=== PATIENT | male | born 1965 | race Caucasian/White ===

== ENCOUNTER → 2019-02-03 08:15 | Outpatient (CLI) | payer BC | END | disposition home or self-care (01) | LOC: D.HCCARDIO 08:15 | PROVIDERS: ATTEND Internal Medicine Cardiovascular Disease | DX: I20.9 Angina pectoris, unspecified (principal) ==

== ENCOUNTER → 2019-02-06 12:35 | Outpatient (CLI) | payer BC ==
[~2019-02-06 12:35] MED LIST: ASPIRIN81 MG PO; BUPROPION XL300 MG PO
[2019-02-13 07:50] VITALS: BMI 32.1
== END | disposition home or self-care (01) ==
LOC: D.HCCARDIO 12:35
PROVIDERS: ATTEND Internal Medicine Cardiovascular Disease
DX: I20.9 Angina pectoris, unspecified (principal); R06.02 Shortness of breath; R60.1 Generalized edema

== ENCOUNTER 2019-02-13 07:06 | Outpatient (CLI) | payer BC ==
[~2019-02-13] VITALS: Ht 180.3 cm; Wt 104.5 kg
--- NOTE | ~2019-02-13 | HEMODYNAMI ---
PATIENT:JERSON RAMAN MEDICAL RECORD: [id number] : 61 LOCATION:[facility] ADMISSION DATE: 02/13/19 Generatedon:02/13/201910:00 Patient name: JERSON RAMAN Patient #: [id number] SSN: [id number] : 1965 Date of study: 02/13/2019 Page: Of Hemodynamic Procedure Report Patient Data Patient Demographics Procedure consent was obtained First Name: JERSON Gender: Male Last Name: LAMINE : 1965 [facility] Initial: JERSON Age: 53 year(s) Patient #: [id number] Race: SSN: [id number] Additional ID: [id number] Contact details [address]: [address] [place] [address] State: [place] City: [place] Zip code: [address] Past Medical History Performed procedures and imaging results Date Procedure Procedure Results Comments 02/03/2019 Stress testing Positive->Intermediate with SPECT MPI risk Allergies Allergen Reaction Date Comments Reported Bactrim 02/13/2019 Admission Admission Data Admission Date: 02/13/2019 Admission Time: 7:06 Arrival Date: 02/13/2019 Arrival Time: 0:00 Admit Source: Other Insurance Payor: Private health insurance [facility] #: [id number] Height (in.): 71 BSA: 2.24 (m2) Height (cm.): 180.34 BMI: 32.13 (kg/m2) Weight (lbs.): 230.38 Weight (kg.): 104.5 Lab Results Lab Result Date: 02/13/2019 Lab Result Time: 8:00 Biochemistry Name Units Result Min Max BUN mg/dl 17 --(---*)-- 7 18 Creatinine mg/dl 1.2 --(---*)-- 0.6 1.3 CBC Name Units Result Min Max Hematocrit % 43.2 --(*---)-- 42 54 Hemoglobin g/dl 14.8 --(-*--)-- 13.5 17.5 Procedure Procedure Types Cath Procedure Diagnostic Procedure [facility] w/Coronaries Sedation Charges Moderate Sedation up to 15 minutes Procedure Description Procedure Date Procedure Date: 02/13/2019 Procedure Start Time: 9:42 Procedure End Time: 9:59 Procedure Staff Name Function Juan Ramon Cornejo MD Performing Physician Isabel Griffith RN Insurance Processing Clerk Kiara Mark RT Monitor Constantine Vanegas RT Scrub Angela Steward RT Scrub Procedure Data Cath Procedure Fluoroscopy Diagnostic fluoroscopy Total fluoroscopy Time: 4.5 time: 4.5 min min Diagnostic fluoroscopy Total fluoroscopy dose: 882 dose: 882 mGy mGy Contrast Material Contrast Material Type Amount (ml) Isovue 300 113 Entry Location Entry Primary Successful Side Size Upsize Upsize Entry Closure Matthews ccessful Closure Location (Fr) 1 (Fr) 2 (Fr) Remarks Device Remarks Radial Right 6 Fr Mechanical artery Short Compression Estimated blood loss: 10 ml Diagnostic catheters Device Type Used For End Catheter Placement DIAGNOSTIC Mary 110cm Procedure 5Fr catheter ([id number]) DIAGNOSTIC Pigtail 5Fr Procedure catheter ([id number]) Procedure Complications No complications Procedure Medications Medication Administration Route Dosage Oxygen etCO2 Nasal cannula 2 l/min Lidocaine 2% added to field 20 Heparin Flush Bag added to field 2 bags (1000units/500ml NS) 0.9% NaCl I.V. 100 ml/hr Versed I.V. 2 mg Fentanyl I.V. 100 mcg Radial Cocktail I.A. 1 syringe (Verapamil 2mg/Nitro 400mcg/Heparin 1500units) Fentanyl I.V. 100 mcg Hemodynamics Rest BSA: 2.24 (m2) HGB: 14.8 (g/dl) O2 Consumption: Estimated: 275.66 (ml/min) O2 Co nsumption indexed: Estimated:123.06 (ml/min/m) Heart Rate: 82 (bpm) Pressure Samples Time Site Value (mmHg) Purpose Heart Use Rate(bpm) 9:51 LV 129/-6,9 Snapshot 86 9:52 AO 107/62(83) Pullback 92 9:52 LV 141/-9,9 Pullback 92 Gradients Valve Time Site 1 Site 2 Mean SEP/DFP Peak To Heart Use (mmHg) (sec/min) Peak Rate (mmHg) (bpm) Aortic 9:52 LV AO 20 24 34 92 141/-9,9 107/62(83) Calculations Valve P-P Mean Valve Index Valve Source Name Gradient Area Flow (cm2) Aortic 34 20 34 20 Snapshots Pre Cath Intra NCS Post Cath Vital Signs Time Heart Resp SPO2 etCO2 NIBP (mmHg) Rhythm Pain Sedation Rate (ipm) (%) (mmHg) Status Level (bpm) 9:25:59 76 13 99 45.2 162/92(117) NSR 0 (11) 10(A) , No pain 9:30:15 83 12 99 27.8 138/85(122) NSR 0 (11) 10(A) , No pain 9:34:27 84 12 99 41.4 146/83(115) NSR 0 (11) 10(A) , No pain 9:38:45 88 14 99 36 136/75(117) NSR 0 (11) 10(A) , No pain 9:42:59 81 12 99 45.2 122/85(107) NSR 0 (11) 10(A) , No pain 9:47:11 80 13 98 37.6 99/76(87) NSR 0 (11) 10(A) , No pain 9:51:15 78 14 98 26.3 113/65(101) NSR 0 (11) 10(A) , No pain 9:56:14 89 8 94 27.8 Measuring NSR 0 (11) 10(A) , No pain 9:57:38 83 11 100 43.7 Time NSR 0 (11) 10(A) Exceeded , No pain Medications Time Medication Route Dose Verified Delivered Reason Notes Effectiveness by by 9:25:10 Oxygen etCO2 2 l/min used for Nasal procedure cannula 9:25:49 Lidocaine 2% added 20ml Juan Ramon Juan Ramon for local to vial Clemente Cornejo MD anesthetic field 9:25:55 Heparin Flush added 2 bags Juan Ramon Juan Ramon used for Bag to Clemente Cornejo MD procedure (1000units/500ml field NS) 9:26:04 0.9% NaCl I.V. 100 Juan Ramon Buffie Per ml/hr Clemente Griffith RN physician 9:41:15 Versed I.V. 2 mg Juan Ramon Buffie for sedation Clemente Grififth RN 9:41:21 Fentanyl I.V. 100 mcg Juan Ramon Buffie for sedation Clemente Griffith RN 9:41:48 Radial Cocktail I.A. 1 Juan Ramon Juan Ramon for (Verapamil syringe Clemente Cornejo MD vasodilation 2mg/Nitro 400mcg/Heparin 1500units) 9:50:47 Fentanyl I.V. 100 mcg Juan Ramon solis sedation Clemente Griffith RN Procedure Log Time Note 9:10:36 Isabel Griffith RN sent for patient. Start room use. 9:18:48 Informed consent obtained and on chart 9:22:09 Admit Source: Other 9:22:16 Insurance Payor : Private health insurance 9:22:56 Patient Weight : 230.38 lbs 9:23:01 Patient Height : 71 inches 9:23:27 Arrival Date: 02/13/2019 12:00:00 AM 9:24:54 Vital chart was started 9:25:10 Oxygen 2 l/min etCO2 Nasal cannula was administered by ; used for procedure; 9:25:49 Lidocaine 2% 20ml vial added to field was administered by Juan Ramon Cornejo MD; for local anesthetic; 9:25:55 Heparin Flush Bag (1000units/500ml NS) 2 bags added to field was administered by Juan Ramon Cornejo MD; used for procedure; 9:26:04 0.9% NaCl 100 ml/hr I.V. was administered by Isabel Griffith RN; Per physician; 9:28:24 Lab Result : BUN 17 mg/dl 9:28:24 Lab Result : Hematocrit 43.2 % 9:28:24 Lab Result : Hemoglobin 14.8 g/dl 9:28:24 Lab Result : Creatinine 1.2 mg/dl 9:28:34 Procedure Status Elective Heart Cath (OP). 9:29:15 Time tracking: Regular hours (M-F 7:00 - 5:00) 9:29:18 Plan of Care:Hemodynamics will remain stable., Cardiac rhythm will remain stable., Comfort level will be maintained., Respiratory function will remain adequate., Patient/ family verbilizes understanding of procedure., Procedure tolerated without complication., Recovers from procedure without complications.. 9:29:28 Patient received from Pre/Post Procedure Room to [facility] 2 Alert and oriented. Tansferred to table in Supine position. 9:29:30 Warm blankets applied, and brigida hugger turned on for patient comfort. 9:29:30 Correct patient and procedure confirmed by team. 9:29:31 ECG and BP/O2 sat monitors applied to patient. 9:29:33 Baseline sample Acquired. 9:29:35 Rhythm: sinus rhythm 9:29:36 Full Disclosure recording started 9:30:32 H&P Date Dictated: 01/24/2019 Within 30 days and on chart., H&P Addendum completed by physician on day of procedure. (MUST COMPLETE FOR ALL OUTPATIENTS). 9:30:34 Pre-procedure instructions explained to patient. 9:30:34 Pre-op teaching completed and patient verbalized understanding. 9:30:35 Family in waiting room. 9:30:39 Patient NPO since Midnight. 9:32:52 Patient allergic to Bactrim 9:32:55 Is patient on blood thinner?No 9:32:57 Patient diabetic? No. 9:33:03 Previous problem with sedation/anesthesia? No ? 9:33:05 Snore? Yes 9:33:06 Sleep apnea? No 9:33:08 Deviated septum? No 9:33:09 Opens mouth fully? Yes 9:33:10 Sticks out tongue? Yes 9:33:11 Airway obstruction? No ? 9:33:13 Dentures? No ? 9:33:16 Pre procedure: right dorsailis pedis pulse Doppler 9:33:45 Patient pain scale 0/10 ?. 9:33:48 IV patent on arrival in left antecubital with 0.9% NaCl at [facility]. 9:33:50 Lab results completed and on chart. 9:33:58 Right Radial & Right Groin area was prepped with chlora-prep and draped in sterile fashion 9:33:59 Alarms reviewed by R. N. 9:33:59 Sharps counted by scrub and verified by R.N. 9:34:20 Use device set Radial Dx or PCI 9:34:21 ACIST Syringe (57884) opened to sterile field. 9:34:22 Bag Decanter () opened to sterile field. 9:34:23 ACIST Hand Control (33702) opened to sterile field. 9:34:23 ACIST Manifold (51516) opened to sterile field. 9:34:23 Tegaderm 4 x 4 (1626W) opened to sterile field. 9:34:36 Medline Cath Pack ([id number]) opened to sterile field. 9:34:36 MBrace Wrist Support ([id number]) opened to sterile field. 9:34:37 NEEDLE Cook 21G 4cm Radial ([id number]) opened to sterile field. 9:34:38 EMERALD Guide Wire (666-503) opened to sterile field. 9:34:39 SHEATH 6FR RAIN ([id number]) opened to sterile field. 9:39:24 --------ALL STOP TIME OUT------ 9:39:25 Final Timeout: patient, procedure, and site verified with staff and physician. All members of the team are in agreement. 9:39:27 Right Radial & Right Groin site verified by team. 9:39:30 Fire Safety Assessment: A--An alcohol-based skin anteseptic being used preoperatively., C--Open oxygen or nitrous oxide is being used., D--An ESU, laser, or fiber-optic light is being used. 9:39:34 Physical assessment completed. ASA score P 2 - A patient with mild systemic disease as per Juan Ramon Cornejo MD. 9:39:53 2) 60-89 Mildly reduced kidney function, and other findings (as for stage 1) point to kidney disease. 9:39:55 Maximum allowable contrast dose (3.7 X eGFR X 0.75)186 ml. 9:39:58 Sedation plan: IV Moderate Sedation Medication:Versed, Fentanyl 9:41:15 Versed 2 mg I.V. was administered by Isabel Griffith RN; for sedation; 9:41:21 Fentanyl 100 mcg I.V. was administered by Isabel Griffith RN; for sedation; 9:41:46 Zero performed for pressure channel P1 9:41:48 Radial Cocktail (Verapamil 2mg/Nitro 400mcg/Heparin 1500units) 1 syringe I.A. was administered by Juan Ramon Cornejo MD; for vasodilation; 9:41:51 Procedure started. 9:42:15 Local anesthetic to right radial artery with Lidocaine 2% by Juan Ramon Cornejo MD.INITIAL ACCESS ONLY 9:43:25 A 6 Fr Short sheath was inserted into the Right Radial artery 9:45:10 A DIAGNOSTIC Mary 110cm 5Fr catheter ([id number]) was advanced over the wire and used for Procedure. 9:47:05 UNABLE TO CROSS VALVE WITH MARY 9:47:56 LCA angiography performed. 9:49:40 RCA angiography performed. 9:49:42 ACCDominant side:Left 9:49:58 Catheter exchanged over wire. 9:50:47 Fentanyl 100 mcg I.V. was administered by Isabel Griffith RN; for sedation; 9:51:02 A DIAGNOSTIC Pigtail 5Fr catheter ([id number]) was advanced over the wire and used for Procedure. 9:51:55 LV gram done using HERCULES 9:52:01 Injector settings: Ml/sec: 10, Volume: 20, 9:52:16 EF : 55 % 9:53:04 Aortic Root visualized 9:54:42 Catheter removed. 9:56:21 Procedure ended.(Physican Out) 9:56:33 TR BAND Standard ([id number]) opened to sterile field. 9:57:08 Sheath removed intact; hemostasis achieved with Mechanical Compression to the Right Radial artery. 9:57:20 Fluoroscopy time 04.50 minutes. 9:57:57 Fluoroscopy dose: 882 mGy 9:57:57 Flurop Dose total: 882 9:58:04 Dose Area Product 92979 mGy/cm. 9:58:11 Contrast amount:Isovue 300 113ml. 9:58:13 Maximum allowable dose exceeded? No. 9:58:14 Sharps counted by scrub and verified by R.N. 9:58:17 TR band inflated with 8cc of air. 9:58:27 Post-procedure physical assessment completed. ASA score P 2 - A patient with mild systemic disease as per Juan Ramon Cornejo MD. 9:58:30 Post procedure rhythm: sinus rhythm 9:58:33 Estimated blood loss: 10 ml 9:58:35 Post procedure instruction explained to patient.Patient verbalizes understanding. 9:58:35 Patient needs reinforcement of post procedure teaching. 9:58:55 Procedure type changed to Cath procedure, Diagnostic procedure, LHC, LHC w/Coronaries, Sedation Charges, Moderate Sedation up to 15 minutes 9:59:31 Procedure and supply charges have been captured, reviewed, submitted and are correct. 9:59:34 Procedure Complication : No complications 9:59:37 Vital chart was stopped 9:59:38 See physician's report for complete and final results. 9:59:39 Report given to Pre/Post Procedure Room. 9:59:42 Patient transfered to Pre/Post Procedure Room with Bed. 9:59:44 Procedure ended. 9:59:44 Full Disclosure recording stopped 9:59:48 End room use (Document Last) Device Usage Item Name Manufacture Quantity Catalog Hospital Part Current Minima l Lot# / Number Charge Number Stock Stock Serial# Code ACIST Acist 1 79207 912128 691719 152130 20 Syringe Medical (98934) Systems Inc Bag Microtek 1 2001S 089533 73245 577803 5 Decanter Medical Inc. (2001S) ACIST Hand Acist 1 98080 135329 396693 591183 5 Control Medical (64541) Systems Inc ACIST Acist 1 51486 567833 152624 636255 5 Manifold Medical (59245) Systems Inc Tegaderm 4 3M 1 1626W 734789 653063 216986 5 x 4 (1626W) Medline Medline 1 [id number] 382558 55195 405448 5 Cath Pack ([id number]) MBrace Advanced 1 140-0250-00 290157 55445 796275 5 Wrist Vascular Support Dynamics ([id number]) NEEDLE Cook Cook Medical 1 [id number] 458017 648681 254354 5 21G 4cm Radial (Q42067) EMERALD Cardinal 1 502-455 131650 032344 433223 5 Guide Wire Health (502-455) SHEATH 6FR Cardinal 1 8635210 714731 5302781 406160 5 [facility] Health (4319481) DIAGNOSTIC Terumo 1 40-5023 086478 209754 052702 5 Mary 110cm 5Fr catheter (428545) DIAGNOSTIC Cardinal 1 [id number] 643354 726318 891546 5 Pigtail 5Fr Health catheter ([id number]) TR BAND Terumo 1 [id number] 647073 059907 223529 40 Standard ([id number]) Signature Audit [place] Stage Time Signature Unsigned Intra-Procedure 02/13/2019 Kiara Mark 10:00:30 AM RT(R) Signatures Performing Physician : Signature : Juan Ramon Cornejo MD Date : Time : Monitor : Kiara Mark Signature : RT Date : Time : [address] [place] [address]
[2019-02-13] MEDS ORDERED: BUPROPION XL300 MG PO (07:37)
[2019-02-13] MEDS ORDERED: ASPIRIN81 MG PO (07:38)
[2019-02-13 07:50] VITALS: BP 146/87; Ht 180.3 cm; Wt 104.5 kg
[2019-02-13 08:03] LABS: BASOPHILS 0.5 % (0-2); EOSINOPHILS 4.3 % (0-7); HEMATOCRIT 43.2 % (42.0-54.0); HEMOGLOBIN 14.8 g/dL (13.5-17.5); IMMATURE GRANULOCYTES 0.2 % (0-5); LYMPHOCYTES 30.2 % (15-50); MCH 32.1 pg (26.0-34.0); MCHC 34.3 g/dL (31.0-37.0); MCV 93.7 fL (80.0-100.0); MEAN PLATELET VOLUME 10.9 fL (7.4-10.4); MONOCYTES 12.9 % (2-11); NEUTROPHILS 51.9 % (40-80); PLATELET COUNT 191 10x3/uL (130-400); RBC 4.61 10x6/uL (4.20-6.10); RDW 12.7 % (11.5-14.5)
[2019-02-13 08:16] LABS: ANION GAP 10.4 mmol/L (8-16); CALCIUM 8.7 mg/dL (8.5-10.1); CARBON DIOXIDE 27.9 mmol/L (21.0-32.0); CREATININE - SERUM 1.2 mg/dL (0.6-1.3); POTASSIUM - SERUM 4.3 mmol/L (3.5-5.1)
--- NOTE | 2019-02-13 10:10 | NUR ---
PT RECEIVED BACK TO ROOM 4 POST PROCEDURE FOR RECOVERY. PT SLEEPY BUT AROUSABLE TO VERBAL STIMULI. PT DENIES PAIN OR DISCOMFORT. TR BAND AND IMMOBILIZER TO R WRIST. DRESSING W SMALL AMT OF BLOOD FROM PROCEDURE, NO BLEEDING OR HEMATOMA NOTED. R ARM PINK AND WARM, CAP REFILL BRISK. PT AND INSTRUCTED TO LIMIT MOVEMENT OF THAT ARM, THEY BOTH VERBALIZED UNDERSTANDING. IV PATENT INFUSING VIA ORDERS. HR NSR RATE 84, BP 134/73, O2 SAT 97 ON ROOM AIR. CALL LIGHT IN REACH, FAMILY AT BEDSIDE.
--- NOTE | 2019-02-13 10:45 | NUR ---
PT AWAKE, SITTING UP VISITING W FAMILY. TR BAND AND IMMOBILIZER IN PLACE. NO BLEEDING OR SWELLING NOTED. DRESSING REMAINS CDI. VSS. CALL LIGHT IN REACH
--- NOTE | 2019-02-13 11:00 | NUR ---
2 CC AIR REMOVED FROM TR BAND, NO BLEEDING OR SWELLING NOTED. PT DOING WELL W/O CHANGES. PT VISITING W FAMILY, CALL LIGHT IN REACH.
--- NOTE | 2019-02-13 11:15 | NUR ---
PT RESTING COMFORTABLY W FAMILY AT BS. TR BAND IN PLACE, NO BLEEDING OR SWELLING NOTED. ARM PINK AND WARM, CAP REFILL BRISK. CALL LIGHT IN REACH. VSS.
--- NOTE | 2019-02-13 11:55 | NUR ---
DISCHARGE INSTRUCTIONS REVIEWED W AND PT, BOTH VERBALIZED UNDERSTANDING. 4 ADD'L CC OF AIR REMOVED FROM TR BAND, NO BLEEDING OR SWELLING NOTED. IV REMOVED W CATH INTACT, MONITORS REMOVED AND PT UP TO DRESS FOR DISCHARGE.
[2019-02-13 12:05] LABS: CHOL - HDL RATIO 7.6 ratio (2.3-4.9); LDL-HDL RATIO 3.9 ratio (1.5-3.5)
--- NOTE | 2019-02-13 12:10 | NUR ---
REMAINING AIR AND TR BAND REMOVED W/O BLEEDING OR SWELLING. 2X2 AND TEGADERM DRESSING APPLIED. IMMOBILIZER RE APPLIED. PT AMBULATED TO , VOIDING W/O DIFFICULITY, PT THEN DISCHARGED VIA WC TO PRIVATE VEHICLE WITH ALL BELONGINGS
== END 2019-02-13 12:10 | disposition home or self-care (01) ==
LOC: D.CATH 07:06
PROVIDERS: ATTEND Internal Medicine Cardiovascular Disease
DX: I35.0 Nonrheumatic aortic (valve) stenosis (principal); Z01.812 Encounter for preprocedural laboratory examination

== ENCOUNTER → 2019-05-27 17:01 | Outpatient (CLI) | payer BC ==
[2019-02-13 07:50] VITALS: BMI 32.1
[2019-05-27 17:31] LABS: CHOL - HDL RATIO 6.3 ratio (2.3-4.9); LDL-HDL RATIO 3.9 ratio (1.5-3.5)
== END | disposition home or self-care (01) ==
LOC: D.LABREF 17:01
PROVIDERS: ATTEND Internal Medicine Cardiovascular Disease
DX: I20.9 Angina pectoris, unspecified (principal); R60.9 Edema, unspecified